=== PATIENT | male | born 1980 | race Caucasian/White ===

== ENCOUNTER 2019-02-11 21:12 | Emergency (ER) | payer OTHER ==
[~2019-02-11] VITALS: Ht 175.3 cm; Wt 82.6 kg
[2019-02-11 21:16] VITALS: Ht 175.3 cm; Wt 82.6 kg
[2019-02-11 22:21] VITALS: BP 110/69
== END 2019-02-11 22:21 | disposition home or self-care (01) ==
LOC: ED 21:12
DX: S71.112A Laceration without foreign body, left thigh, initial encounter (principal); S51.012A Laceration without foreign body of left elbow, initial encounter; W45.8XXA Other foreign body or object entering through skin, initial encounter; Y93.89 Activity, other specified; Y92.89 Other specified places as the place of occurrence of the external cause; Y99.8 Other external cause status
CPT/HCPCS: 90715; J2001